=== PATIENT | male | born 1935 | race Caucasian/White ===

== ENCOUNTER 2017-07-07 10:44 | Emergency (ER) | payer MEDICARE ==
[2017-07-07 10:46] VITALS: BP 145/84; PULSE 98; RESP 14; TEMP 97.8; O2SAT 97
[2017-07-07] MEDS ORDERED: MELA5 PO (11:18)
[2017-07-07] MEDS ORDERED: BYST2.5T2 PO (11:18)
[2017-07-07] MEDS ORDERED: ATOR40TA16 PO (11:18)
[2017-07-07] MEDS ORDERED: VENL75TA PO (11:18)
[2017-07-07] MEDS ORDERED: APIX5TAB PO (11:18)
--- NOTE | 2017-07-07 11:35 | PD ---
HPI Chief Complaint: Fall Time Seen by Provider: 11:31 Travel History International Travel<30 days: No Contact w/Intl Traveler<30days: No Traveled to known affect area: No History of Present Illness HPI 81-year-old male patient with history of A. fib currently on Eliquis, presents to the ER today because he accidentally rolled out of bed and fell onto the night stand onto his right shoulder, thinks that he may have hit his head as well. He denies any loss of consciousness but is currently complaining of right shoulder pain. Denies any chest pains, or shortness of breath. He denies any other issues or injuries. Modifying Factors: None Associated Signs & Symptoms: Fall from bed, possible head injury, right shoulder injury Risk Factors: On Eliquis COUNT INCLUDES THE [facility] Past Medical History Hx Anticoagulant Therapy: Yes Atrial Fibrillation: Yes High Cholesterol: Yes Diminished Hearing: No Gastrointestinal Disorders: Yes (HERNIA ) Hypertension: Yes Tetanus Vaccination: Unknown Influenza Vaccination: Yes Past Surgical History Abdominal Surgery: Yes (HERNIA REPAIR ) Eye Surgery: Yes (CATARACT BILATERAL ) Genitourinary Surgery: Yes (VASECTOMY ) Tonsillectomy: Yes Social History Alcohol Use: Yes (SOCIAL ) Tobacco Use: No (QUIT LONG TIME AGO ) Substance Use: No Allergies-Medications (Allergen,Severity, Reaction): Coded Allergies: No Known Allergies (Unverified , 07/07/17) Reported Meds & Prescriptions Reported Meds & Active Scripts Active Reported Melatonin 5 Mg Tab 5 Mg PO HS Effexor (Venlafaxine HCl) 75 Mg Tab 75 Mg PO DAILY Eliquis (Apixaban) 5 Mg Tab 5 Mg PO BID Bystolic (Nebivolol) 2.5 Mg Tab 2.5 Mg PO DAILY Atorvastatin (Atorvastatin Calcium) 40 Mg Tab 40 Mg PO DAILY Review of Systems Except as stated in HPI: all other systems reviewed are Neg Physical Exam Narrative GENERAL: Well-developed pleasant elderly white male patient currently in mild distress. Awake and oriented 3. SKIN: Focused skin assessment warm/dry. HEAD: Atraumatic. Normocephalic. EYES: Pupils equal and round. No scleral icterus. No injection or drainage. ENT: No nasal bleeding or discharge. Mucous membranes pink and moist. NECK: Trachea midline. No JVD. CARDIOVASCULAR: Regular rate and rhythm. No murmur appreciated. RESPIRATORY: No accessory muscle use. Clear to auscultation. Breath sounds equal bilaterally. CHEST: Right lateral upper chest wall tenderness on palpation without deformity or crepitance. No retractions or use of accessory muscles. GASTROINTESTINAL: Abdomen soft, non-tender, nondistended. Hepatic and splenic margins not palpable. MUSCULOSKELETAL: No obvious deformities. No clubbing. No cyanosis. No edema. EXTREMITIES: No clubbing, cyanosis, or edema. Right shoulder tenderness on palpation especially at the upper humeral area, tenderness with range of motion. NEUROLOGICAL: Awake and alert. No obvious cranial nerve deficits. Motor grossly within normal limits. Normal speech. PSYCHIATRIC: Appropriate mood and affect; insight and judgment normal. Data Data Last Documented VS Vital Signs Date Time Temp Pulse Resp B/P (MAP) Pulse Ox O2 Delivery O2 Flow Rate FiO2 07/07/17 10:46 97.8 98 14 145/84 (104) [address] Brain W/O Iv Contrast(Rout) (07/07/17 11:31) Shoulder, Complete (>2vws) (07/07/17 11:31) Ribs, Uni (W/Exp Cxr-Min 3vw) (07/07/17 11:31) MDM Medical Decision Making Medical Screen Exam Complete: Yes Emergency Medical Condition: Yes Medical Record Reviewed: Yes Interpretation(s) Last 24 hours Impressions Shoulder X-Ray 07/07/17 1131 Signed Impressions: Service Date/Time: Friday, July 07, 2017 11:45 - CONCLUSION: Negative for fracture Erik Restrepo MD FACR Differential Diagnosis Rib pains, right shoulder pains, possible head injury on Eliquis: Rule out ICH versus rib fractures versus humeral fractures versus contusions Narrative Course X-rays of the shoulder and ribs and CAT scan the brain did not reveal any signs of acute injuries. At this point, it appears that he has contusions per my plan would be to give him symptomatic relief or pain and follow-up with primary care doctor. Return for any worsening in symptoms as needed. The plan has been discussed with him and and they state understanding. Diagnosis Primary Impression: Fall from bed Additional Impressions: Contusion of rib on right side Contusion of right shoulder Minor closed head injury Med/Other Pt SpecificInfo: Prescription(s) given Scripts Tramadol (Tramadol) 50 Mg Tab 50 MG PO Q8H Y for PAIN, #12 TAB 0 Refills Prov: Soontharothai,Rewadee MD 07/07/17 Disposition: 01 DISCHARGE HOME Condition: Stable Jacquelyn Ferrari MD Jul 07, 2017 11:35
--- NOTE | 2017-07-07 12:04 | RADRPT ---
EXAM DATE/TIME: 07/07/2017 11:45 [facility] COMPARISON: No previous studies available for comparison. INDICATIONS : Right shoulder pain. Patient fell out of bed this morning. MEDICAL HISTORY : Hypertension. SURGICAL HISTORY : None. ENCOUNTER: Initial ACUITY: 1 day PAIN SCORE: 5/10 LOCATION: Right shoulder. FINDINGS: Degenerative changes AC joint. Fracture is not appreciated. Narrowing of the glenohumeral interval suggesting rotator cuff injury. In apex clear. CONCLUSION: Negative for fracture Erik Restrepo MD FACR on July 07, 2017 at 12:01 Board Certified Radiologist. This report was verified electronically.
--- NOTE | 2017-07-07 12:08 | RADRPT ---
EXAM DATE/TIME: 07/07/2017 11:48 [facility] COMPARISON: No previous studies available for comparison. INDICATIONS : Fell out of bed, hit head on dresser. RADIATION DOSE: 56.35 CTDIvol (mGy) MEDICAL HISTORY : Cardiovascular disease. Hypertension. SURGICAL HISTORY : None. ENCOUNTER: Initial ACUITY: 1 day PAIN SCALE: 0/10 LOCATION: Bilateral cranial TECHNIQUE: Multiple contiguous axial images were obtained of the head. Using automated exposure control and adjustment of the mA and/or kV according to patient size, radiation dose was kept as low as reasonably achievable to obtain optimal diagnostic quality images. DICOM format image data is av ailable electronically for review and comparison. FINDINGS: There is marked central and cortical atrophy with dilatation of ventricular and sulcal spaces. There is no parenchymal hemorrhage, acute infarction or mass lesion identified. There are no extra-axial fluid collections appreciated. The posterior fossa is unremarkable with midline fourth ventricle. T he portion of the orbits and paranasal sinuses visualized are unremarkable. CONCLUSION: Atrophy otherwise negative Erik Restrepo MD FACR on July 07, 2017 at 12:05 Board Certified Radiologist. This report was verified electronically.
--- NOTE | 2017-07-07 12:09 | RADRPT ---
EXAM DATE/TIME: 07/07/2017 11:43 [facility] COMPARISON: No previous studies available for comparison. INDICATIONS : Right sided rib pain. Patient fell out of bed this morning. MEDICAL HISTORY : Hypertension. SURGICAL HISTORY : None. ENCOUNTER: Initial ACUITY: 1 day PAIN SCORE: 5/10 LOCATION: Right rib. FINDINGS: Multiple views of the right ribs were performed. There is no pneumothorax. Do not see rib fracture. The scapula and clavicle are intact. CONCLUSION: Negative for rib fracture. Negative for pneumothorax Erik Restreop MD FACR on July 07, 2017 at 12:05 Board Certified Radiologist. This report was verified electronically.
[2017-07-07] MEDS ORDERED: TRAM50TA PO (12:20)
== END 2017-07-07 12:30 | disposition home or self-care (01) ==
LOC: NEPD 10:44
DX: S20.211A Contusion of right front wall of thorax, initial encounter (principal); S40.011A Contusion of right shoulder, initial encounter; S09.90XA Unspecified injury of head, initial encounter; I48.91 Unspecified atrial fibrillation; E78.00 Pure hypercholesterolemia, unspecified; I10 Essential (primary) hypertension; W08.XXXA Fall from other furniture, initial encounter; Z79.899 Other long term (current) drug therapy
CPT/HCPCS: 70450; 71101; 73030; 99284